=== PATIENT | female | born 1960 | race African-American/Black ===

== ENCOUNTER → 2017-05-20 | Outpatient (CLI) | payer BC ==
--- NOTE | 2017-05-20 10:32 | RAD ---
Renal ultrasound, 05/20/2017: History: Hematuria The right kidney measures 10.6 cm in length while the left kidney measures 10.4 cm. There is no evidence of hydronephrosis or a renal mass. The renal parenchymal echogenicity is within normal limits. The urinary bladder was initially distended with a volume of approximately 780 cc. Limited views of the bladder show no specific abnormality. Post voiding views of the bladder demonstrate 17 cc of residual urine. IMPRESSION: No significant renal abnormality is detected.
--- NOTE | 2017-05-20 13:56 | RAD ---
Radionuclide parathyroid scan, 05/20/2017: History: Hypercalcemia, elevated parathyroid hormone level Imaging of the lower neck was performed following IV injection of 21 mCi of technetium 99m sestamibi. The initial images demonstrate a focus of increased activity projected over the lower pole of the right lobe of the thyroid gland. This relative increased activity persists on the 3 hour delayed images. No other abnormality is seen. IMPRESSION: Abnormal uptake in the lower right thyroid region compatible with a parathyroid adenoma. Correlation with sonographic findings may be helpful.
== END | disposition home or self-care (01) ==
LOC: NM 08:07
PROVIDERS: ATTEND Physician Assistant Medical
DX: E83.52 Hypercalcemia (principal); D36.7 Benign neoplasm of other specified sites; R31.9 Hematuria, unspecified; R39.198 Other difficulties with micturition
CPT/HCPCS: 76770; 78070; 96374; A9500

== ENCOUNTER 2017-06-24 06:42 | Observation (INO) | payer BC ==
[~2017-06-24] VITALS: Ht 167.6 cm; Wt 85.7 kg
[2017-06-24] VITALS (9 sets, daily range): BP systolic 103–117; BP diastolic 60–73
[2017-06-24] MEDS ORDERED: PROCHLORPERAZINE 10 MG/2 ML VIAL. IV PRN (07:00)
[2017-06-24] MEDS ORDERED: LIDOCAINE 1% PF 2 ML VIAL. ID PRN (07:00)
[2017-06-24] MEDS ORDERED: ONDANSETRON PF 4 MG/2 ML VIAL. IV PRN ×2 (07:00→10:15)
[2017-06-24] MEDS ORDERED: HYDROmorphone 2 MG/ML VIAL IV PRN (07:00)
[2017-06-24] MEDS ORDERED: fentaNYL PF VIAL 100 MCG/2 ML VIAL IV PRN (07:00)
[2017-06-24] MEDS ORDERED: IV RINGERS,LACTATED 1000ML 1,000 ML IV SCH (07:00)
[2017-06-24] MEDS ORDERED: PROPOFOL 20 ML IV ONE (07:06)
[2017-06-24] MEDS ORDERED: ROCURONIUM 50 MG/5 ML VIAL. ONE (07:06)
[2017-06-24] MEDS ORDERED: SUCCINYLCHOLINE 200 MG/10 ML VIAL. ONE (07:06)
[2017-06-24] MEDS ORDERED: LIDOCAINE 2% PF Vial for OR 5 ML VIAL. ONE (07:06)
[2017-06-24] MEDS ORDERED: fentaNYL PF VIAL 100 MCG/2 ML VIAL ONE (07:07)
[2017-06-24] MEDS ORDERED: BUPIVAC MPF-EPI 0.5%-1:200000 30 ML VIAL. ONE (07:31)
[2017-06-24] MEDS ORDERED: DEXAMETHASONE SOD PHOS 20 MG/5 ML VIAL. ONE (08:02)
[2017-06-24] MEDS ORDERED: DESFLURANE 31 TO 60 MINUTES IH ONE (08:02)
[2017-06-24] MEDS ORDERED: PHENYLEPHRINE in 0.9% NACL PF 1 MG/10 ML SYRINGE. IV ONE (08:31)
[2017-06-24] MEDS ORDERED: ONDANSETRON PF 4 MG/2 ML VIAL. ONE (08:43)
--- NOTE | 2017-06-24 10:10 | PDOC4 ---
Operative Note Operative Note Date: 06/24/2017 Preoperative diagnosis: Hypercalcemia hyperparathyroidism Postoperative diagnosis: Same Procedure: Parathyroidectomy Surgeon: Santi Casillasdietary assistant: Telly Specimen: Parathyroid gland Dictation: Patient is 56-year-old female who's had elevated parathyroid hormone levels and calcium on sestamibi scan and ultrasound was found to have a nodule in the lower pole of the right thyroid. Procedure of parathyroidectomy was explained to the patient detail was benefits were also discussed including bleeding infection injury to recurrent laryngeal nerve alternatives to this procedure also discussed with patient seemed understanding gave both verbal and written consent had procedure performed. Patient was taken to the operating room placed in supine position general anesthesia was initiated once patient was asleep and intubated her neck and chest were prepped and draped usual sterile fashion using ChloraPrep. A transverse incision was made 2 finger breast above the sternal notch this carried down through the subcutaneous cutaneous tissues using electrocautery right hemostasis. Strap muscles were incised in the midline tinges returned to the right neck the right thyroid gland was dissected free of its adherent tissues allowed exposure to the inferior pole of the right thyroid gland. Tissue was excised and area consistent with a sestamibi and ultrasound this was sent for pathology returned as thyroid tissue 2 more specimens in the same area were visualized and removed both were sent one was normal parathyroid and second was parathyroid adenoma enlarged hypercellular. The area was visualized hemostasis deemed appropriate and the strap muscles in the midline were closed with running 3-0 Vicryl the platysmas muscle was reapproximated with 3-0 Vicryl and the skin was approximate 4 subcuticular Monocryl Mastisol Steri-Strips and island dressing were applied. Patient was waken expanded in the operating room taken recovery in stable condition all sponge instrument needle counts listed as correct estimated blood loss 20 mL. CHRISTINA CHAPMAN MD Jun 24, 2017 10:10
[2017-06-24] MEDS ORDERED: MORPHINE SULFATE 2 MG/ML DISP.SYRIN. IV PRN (10:15)
[2017-06-24] MEDS ORDERED: 0.9 % SODIUM CHLORIDE 10 ML DISP.SYRIN. IV PRN (10:15)
[2017-06-24] MEDS ORDERED: oxyCODONE/APAP 5/325 1 TAB TABLET PO PRN ×2 (10:15)
[2017-06-24] MEDS: fentaNYL PF VIAL 100 MCG/2 ML VIAL IV PRN ×2 (10:23→10:40)
[2017-06-24] MEDS: MORPHINE SULFATE 2 MG/ML DISP.SYRIN. IV PRN ×2 (10:48→11:24)
[2017-06-24] MEDS: KETOROLAC 15 MG/ML VIAL. IV SCH ×2 (14:04→18:42)
[2017-06-24] MEDS: IV DEXTROSE 5%-LACT RINGERS 1,000 ML IV SCH ×2 (14:04→23:30)
[2017-06-25] MEDS: KETOROLAC 15 MG/ML VIAL. IV SCH ×2 (00:02→06:28)
[2017-06-25 03:10] VITALS: BP 113/71
[2017-06-25 07:00] VITALS: BP 120/78
--- NOTE | 2017-06-25 10:05 | DISCH ---
DISCHARGE INSTRUCTIONS Condition on Discharge Condition on Discharge: Stable Activity After Discharge Activity Instructions for Disc: Resume previous activity, Activity as tolerated , Avoid exertion Lifting Instructions after Dis: No heavy lifting Diet after Discharge Diet after Discharge: Regular Wound Incision Care Wound/Incision Care: May get incision wet Follow-Up Follow up with: Dr Hancock next week ARAM MEDINA MD Jun 25, 2017 10:05
[2017-06-25 11:00] VITALS: BP 137/78
[2017-06-26 08:15] LABS: PTH INTACT 24 pg/mL (15-65)
--- NOTE | 2017-06-28 13:33 | PATHOLOGY ---
PATHOLOGY REPORT * * * * * * * * FINAL DIAGNOSIS: A. Tissue designated "parathyroid adenoma": - Nodular segment of benign thyroid tissue - no parathyroid tissue identified. B. Right neck tissue: - Benign thymic tissue. C. Right neck tissue, possible parathyroid: - Parathyroid adenoma (weight 569 mg).. D. Right neck tissue: - Normal parathyroid tissue identified (weight 71mg). (JPM:jose maria; 06/28/2017) REPORT ELECTRONICALLY SIGNED BY: Kai Wood M.D. DATE/TIME: 06/28/2017 13:32 * * * * * * * * GROSS PATHOLOGY: A. The specimen is received fresh for intraoperative consultation and is designated "right parathyroid tissue". This consists of a nodule of yellow red-brown soft tissue which weighs 0.215 grams and measures 0.7 cm in greatest dimension. The specimen is bisected. The cut surface is ramsey to reddish brown. This is submitted for frozen section as FSA1. The tissue remaining from frozen section is submitted for permanent sections as A1. B. The specimen is received fresh for intraoperative consultation and is designated "right neck tissue". This consists of a segment of yellow-red soft tissue which weighs 0.177 grams and which measures up to 1.0 cm in greatest dimension. Sectioning reveals a pale yellow and focally reddish-brown soft cut surface. This is submitted for frozen section as FSB1. The tissue remaining from frozen section is submitted for permanent sections as B1. C. The specimen is received fresh for intraoperative consultation and is designated "right neck tissue, possible parathyroid". This consists of an elongate segment of glistening yellow-red soft tissue which weighs 0.569 grams and measures up to 1.7 cm in length and 0.7 cm in width. The specimen is bisected. Sectioning reveals a yellow fairly homogenous cut surface. This is submitted for frozen section as FSC1. The tissue remaining from frozen section is submitted for permanent sections as C1. D. The specimen is received fresh and is designated "right neck tissue". This consists of a small segment of yellow and reddish-brown soft tissue weighing 0.071 grams and measuring up to 0.6 cm in greatest dimension. This is submitted for frozen section as FSD1. The tissue remaining from frozen section submitted for permanent sections as D1. (JPM:jose maria; 06/24/2017) FROZEN SECTION DIAGNOSIS: FSA1: Right parathyroid tissue: - Thyroid tissue -- No parathyroid tissue identified. - The results are reported to Dr. Hancock n the OR. FSB1: Right neck tissue: - Thymic tissue -- No parathyroid identified. - The results are reported to Dr. Hancock in the OR. FSC1. Right neck tissue, possible parathyroid: - Cellular parathyroid tissue consistent with adenoma. - The results are reported to Dr. Hancock in the OR. FSD1. Right neck tissue: - Parathyroid tissue identified. - The results are reported to Dr. Hancock in the OR. (JPM:[facility]; 06/24/2017) Testing performed [place] [address] INITIAL CPT CODE(S): A; 56008, 52328 B; 33557, 95418 C; 76019, 98828 D; 66359, 87201 Professional [facility] [place] [address] Technical services performed by [facility] at [address] [place] [address]. SPECIMEN(S) RECEIVED: A.Parathyroid adenoma B.Right neck tissue C.Right neck tissue, possible parathyroid D.Right neck tissue CLINICAL HISTORY: Parathyroid adenoma PROCEDURE: A. Parathyroid adenoma: B. Right neck tissue: C. Right neck tissue, possible parathyroid: D. Right neck tissue: PATIENT: ALMAZ VELASQUEZ /AGE: 511/28/1960 (Age: 56) PATIENT #: [id number] ALT CASE #: SPECIMEN COLLECTION DATE: 06/24/2017 SPECIMEN RECEIVED DATE: 06/24/2017 [facility] - [id number] [place] [address] - PHONE: [phone] * * * END OF REPORT * * *
== END 2017-06-25 12:30 | disposition home or self-care (01) ==
LOC: SURG 06:42 → 4 NORTH 10:10
PROVIDERS: ADMIT Surgery; ATTEND Surgery
DX: D35.1 Benign neoplasm of parathyroid gland (principal); E21.3 Hyperparathyroidism, unspecified; E83.52 Hypercalcemia
CPT/HCPCS: 36415; 60500; 82310; 83970; 88305; 88331; 96374; 96376; G0378; G0379; J0330; J0780; J1100; J1885; J2270; J2370; J2405; J2704; J3010; J3490; J7120; J2001

== ENCOUNTER → 2018-06-22 | Outpatient (CLI) | payer OTHER ==
--- NOTE | 2018-06-22 16:32 | KCIC ---
EXAM: Bilateral digital screening mammogram with tomosynthesis. HISTORY: 57-year-old female presents for screening mammography. TECHNIQUE: Full-field digital craniocaudal and mediolateral oblique 2D and 3D tomosynthesis images of both breasts are obtained for evaluation. Computer aided detection with [employer] software version 9.3 was applied. COMPARISON: 05/09/2017 BREAST PARENCHYMAL DENSITY: Level B - Scattered fibroglandular densities. FINDINGS: There is no new suspicious mass, microcalcification or region of architectural distortion. IMPRESSION: BI-RADS Category 2: Benign finding(s). RECOMMENDATION: Annual mammography is recommended. If your mammogram demonstrates that you have dense breast tissue, which could hide abnormalities, and if you have other risk factors for breast cancer that have been identified, you might benefit from supplemental screening tests that may be suggested by your ordering physician. Dense breast tissue, in and of itself, is a relatively common condition. This information is not provided to cause undue concern, but rather to raise your awareness and to promote discussion with your physician regarding the presence of other risk factors, in addition to dense breast tissue. A report of your mammography results will be sent to you and your physician. You should contact your physician if you have any questions or concerns regarding this report. Mammography is a sensitive method for finding small breast cancers, but it does not detect them all and is not a substitute for careful clinical examination. A negative mammogram does not negate a clinically suspicious finding and should not result in delay in biopsying a clinically suspicious abnormality. PQRS compliance statement - Patient information was entered into a reminder system with a target due date for the next mammogram. "Our facility is accredited by the [employer] Mammography [employer]." Electronically signed by: Kimberly Miller MD (06/22/2018 4:28 PM) [id number]
== END | disposition home or self-care (01) ==
LOC: KCIC MAMMO 13:59
PROVIDERS: ATTEND Specialist
DX: Z12.31 Encounter for screening mammogram for malignant neoplasm of breast (principal)
CPT/HCPCS: 77063; 77067

== ENCOUNTER → 2019-07-24 | Outpatient (CLI) | payer OTHER ==
--- NOTE | 2019-07-24 15:57 | KCIC ---
Bilateral digital screening mammograms with 3-D tomosynthesis: Reason for examination: Routine screening. Comparison is made to previous studies dated back to 03/11/2016. Bilateral mammograms in CC and oblique projections were obtained with 2-D imaging and 3-D tomosynthesis imaging on a Siemens Inspiration unit and reviewed on the workstation. Interpretation was made with the benefit of CAD. The skin and nipples show no abnormalities. No abnormal axillary lymph nodes are seen. The breast parenchyma is heterogeneously dense. (Breast density: Category C.) There are no dominant masses, suspicious calcifications or architectural distortion. Impression: No evidence of malignancy. Recommend routine screening. Your patient's mammogram demonstrates that she has dense breast tissue (breast density category C or D), which could hide abnormalities, and if she has other risk factors for breast cancer that have been identified, she might benefit from supplemental screening tests that may be suggested by you as her ordering physician. Dense breast tissue, in and of itself, is a relatively common condition. Therefore, this information is not provided to cause undue concern, but rather to raise your awareness and to promote discussion with your patient regarding the presence of other risk factors, in addition to dense breast tissue. Your patient's mammography results will be sent to her. BI-RAD Category 1: Negative. "Our facility is accredited by the [employer] Mammography Program." This patient's information has been entered into a reminder system for the patient to be notified with the results of her examination and a target date for the next mammogram. Electronically signed by: Snow Alvarez MD (07/24/2019 3:54 PM) [id number]
== END | disposition home or self-care (01) ==
LOC: KCIC MAMMO 10:35
PROVIDERS: ATTEND Specialist
DX: Z12.31 Encounter for screening mammogram for malignant neoplasm of breast (principal); N64.89 Other specified disorders of breast
CPT/HCPCS: 77063; 77067

== ENCOUNTER → 2020-08-01 | Outpatient (CLI) | payer OTHER ==
--- NOTE | 2020-08-01 15:22 | KCIC ---
EXAM: Bilateral digital screening mammogram with tomosynthesis. HISTORY: 59-year-old female presents for screening mammography. TECHNIQUE: Full-field digital craniocaudal and mediolateral oblique 2D and 3D tomosynthesis images of both breasts are obtained for evaluation. Computer aided detection was applied. COMPARISON: 07/24/2019 BREAST PARENCHYMAL DENSITY: Level C - Heterogeneously dense. FINDINGS: There is no new suspicious mass, microcalcification or region of architectural distortion. There are stable areas of asymmetry and nodularity within both breasts. IMPRESSION: BI-RADS Category 2: Benign finding(s). RECOMMENDATION: Annual mammography is recommended. If your mammogram demonstrates that you have dense breast tissue, which could hide abnormalities, and if you have other risk factors for breast cancer that have been identified, you might benefit from s upplemental screening tests that may be suggested by your ordering physician. Dense breast tissue, i n and of itself, is a relatively common condition. This information is not provided to cause undue c oncern, but rather to raise your awareness and to promote discussion with your physician regarding th e presence of other risk factors, in addition to dense breast tissue. A report of your mammography re sults will be sent to you and your physician. You should contact your physician if you have any ques tions or concerns regarding this report. Mammography is a sensitive method for finding small breast cancers, but it does not detect them all a nd is not a substitute for careful clinical examination. A negative mammogram does not negate a clin ically suspicious finding and should not result in delay in biopsying a clinically suspicious abnorma lity. PQRS compliance statement - Patient information was entered into a reminder system with a target due date for the next mammogram. "Our facility is accredited by the [employer] Mammography [employer]." Electronically signed by: Kimberly Miller MD (08/01/2020 3:19 PM) [id number]
== END ==
LOC: KCIC MAMMO 13:38
PROVIDERS: ATTEND Family Medicine
DX: Z12.31 Encounter for screening mammogram for malignant neoplasm of breast (principal)
CPT/HCPCS: 77063; 77067

== ENCOUNTER → 2021-09-24 | Outpatient (CLI) | payer OTHER ==
--- NOTE | 2021-09-24 09:39 | KCIC ---
Bilateral digital screening mammograms with 3-D tomosynthesis: Reason for examination: Routine screening. Comparison is made to previous studies dated back to 03/11/2016. Bilateral mammograms in CC and oblique projections were obtained with 2-D imaging and 3-D tomosynthes is imaging on a Siemens Inspiration unit and reviewed on the workstation. Interpretation was made wit h the benefit of CAD. The skin and nipples show no abnormalities. No abnormal axillary lymph nodes are seen. The breast par enchyma shows scattered fatty and fibroglandular density. (Breast density: Category B.) There continu e to be small nodular parenchymal densities bilaterally which are stable. There are no new dominant m asses, suspicious calcifications or architectural distortion. Impression: No evidence of malignancy. Recommend routine screening. BI-RAD Category 2: Benign. "Our facility is accredited by the [employer] Mammography Program." This patient's information has been entered into a reminder system for the patient to be notified wit h the results of her examination and a target date for the next mammogram. Electronically signed by: Snow Alvarez MD (09/24/2021 9:36 AM) [id number]
== END ==
LOC: KCIC MAMMO 08:21
PROVIDERS: ATTEND Family Medicine
DX: Z12.31 Encounter for screening mammogram for malignant neoplasm of breast (principal)
CPT/HCPCS: 77063; 77067